=== PATIENT | male | born 1960 | race Two or more races ===

== ENCOUNTER 2021-12-13 20:15 | Inpatient (IN) | payer OTHER ==
[~2021-12-13] VITALS: Ht 185.4 cm; Wt 1179.3 kg
--- NOTE | 2021-12-13 20:59 | NUR ---
SE RECIBE PACIENTE TRAIDO POR AMBULANCIA A LA NORMA DE EMERGENCIAS, POR DIFICULTAD RESPIRATORIA, PTE ES LLEVADO AL AREA DE CRITICO Y SE UBICA EN CAMA 3, PTE PRESENTA EDEMA EN EXTREMIDADES SUPERIORES E INFERIORES. PTE SATURANDO A 88% AL MOMENTO DE RECIBIRLO. SE CONECTA PTE A CANULA NASAL A 2 LT. SE REALIZA EKG, PTE SE CONECTA A MONITOR CARDIACO Y OXIMETRIA DE PULSO. SE REALIZA VENOPUNCION EN BRAZO DERECHO CON ANGIO #18 POR RNЕлена YSJ. SE EXTRAEN MUESTRAS DE JESSICA MARCELINO ORDEN MEDICA. Y SE INSERTA TEAGUE TOMANDO MEDIDAS ASEPTICAS. SE REALIZA DXT Y LINDSAY SE ENCUENTRA EN 103MG/DL. SE LE REALIZA PLACA DE PECHO POR PERSONAL DE PLACAS Y SE REALIZAN GASES ARTERIALES POR PERSONAL DE TERAPIA RESP. AL MOMENTO PTE CON BARANDAS ELEVADAS POR SEGURIDAD, CONECTADO A MONITOR CARDIACO Y A OXIMETRIA DE PULSO PARA MAYOR VIGILANCIA DE JADE CONDICION.
[2021-12-13] MEDS ORDERED: KEPPRA750 MG PO (21:12)
[2021-12-13] MEDS ORDERED: CARVEDILOL ER40 MG PO (21:12)
[2021-12-13] MEDS ORDERED: LIPITOR40 M1 PO (21:13)
[2021-12-13] MEDS ORDERED: TEGRETOL XR400 MG PO (21:13)
[2021-12-13] MEDS ORDERED: VERELAN180 MG PO (21:13)
[2021-12-13] MEDS ORDERED: NEURONTIN300 MG PO (21:13)
[2021-12-13] MEDS ORDERED: CARVEDILOL25 MG PO (21:14)
[2021-12-13] MEDS ORDERED: SINGULAIR 10MG10 MG PO (21:15)
[2021-12-13] MEDS ORDERED: ALLERGY RELIEF10 M3 PO (21:15)
[2021-12-13] MEDS ORDERED: GLIMEPIRIDE4 MG PO (21:15)
[2021-12-13] MEDS ORDERED: ALLOPURINOL100 MG PO (21:16)
--- NOTE | 2021-12-13 23:34 | NUR ---
SE RECIBE PTE MASCULINO ALERTA Y ORIENTADO EN [place] ESFERAS DEL TURNO ANTERIOR, EN CAMA #3 DE UNIDAD DE CRITICO. PTE CONECTADO A MONITOR CARDIACO Y OXIMETRIA DE PULSO CONTINUA. ASISTIDO RESPIRATORIAMENTE CON CANULA NASAL A 2LT/MIN, PRESENTADO SATURACION DE O2 MANUAL AL 99%. VENOPUNCION EN MANO DERECHA CON ANGIO #18, PATENTE ELVIS DE EDEMA Y ERITEMA, EN SALINE LOCK. PTE CON ABDOMEN BLANDO Y DEPRESIBLE. SONDA URINARIA A GRVEDAD DRENANDO EGRESO DE ORINA COLOR AMARILLO VIOLETA CON APROXIMADAMENTE 300ML. SE CAMILA Y REPORTAN S/V. SE ORIENTA PTE SOBRE CONTINUIDAD DE TRATAMIENTO REFIERE ENTENDER. PENDIENTE CONSULTA CON MEDICINA INTERNA YA NOTIFICADA.
--- NOTE | 2021-12-13 23:52 | NUR ---
PTE PRESENTA TEMPERATURA EN 103.2 F, SE NOTIFICA A ; LINDSAY ORDENA ADMINISTRAR MEDICAMENTE TYLENOL 1,00MG PO X1. SE ADMINISTRA MEDICAMENTO, BAJO MEDIDAS ASEPTICAS Y SE COLOCA COMPRESA ARMSTRONG. SE OBSERVA POR CAMBIOS EN JADE CONDICION.
--- NOTE | 2021-12-14 01:21 | NUR ---
1255 SE RE-ESTIMA TEMPERATURA PTE PRESENTA 102.3. PTE REFIERE TOS PRODUCTIVA DESDE HACE MAS DE VIRIDIANA SEMANA. 0100 SE CONTACTA VIA TELEFONICA A , SE NOTIFICA QUEJA DE PTE Y TREMPERATURA, LINDSAY ORDENA ADMINISTRAR TYLENOL 2 TABS Q4HR PRN FOR FEVER, ZITHROMAX 500MG IV X1, ATROVENT 0.5MG IH Q4HR Y TUSSIPREX 10ML PO Q8HR; SE REALIZA READBACK X2. 0110 SE ADMINISTRAN MEDICAMENTOS, BAJO MEDIDAS ASEPTICAS. SE NOTIFICAN TERAPIAS A PERSONAL DE TERAPIA RESPIRATORIA.
--- NOTE | 2021-12-14 06:30 | NUR ---
0620 EVALUA PTE. SE REALIZA DXT Y SE CAMILA S/V. PTE NO PRESENTA FIEBRE. 0630 SE REALIZA I&O A PTE. SE OBSERVA POR CAMBIOS SIGNIFICATIVOS.
[2021-12-19] MEDS ORDERED: LEVOTHYROXINE50 MCG PO (07:13)
[2021-12-19] MEDS ORDERED: GLIMEPIRIDE4 MG PO (07:13)
[2021-12-19] MEDS ORDERED: TEGRETOL200 MG PO (07:13)
[2021-12-19] MEDS ORDERED: AMIODARONE HCL200 MG PO (07:13)
[2021-12-19] MEDS ORDERED: CEPHALEXIN500 MG PO (07:13)
[2021-12-19] MEDS ORDERED: KEPPRA500 MG PO (07:13)
[2021-12-19] MEDS ORDERED: IPRATROPIU0.2 MG/1 M IH (07:13)
[2021-12-19] MEDS ORDERED: NORVASC2.5 M1 PO (07:13)
[2021-12-19] MEDS ORDERED: CARVEDILOL25 MG PO (07:13)
[2021-12-19] MEDS ORDERED: XOPENEX0.63 MG/3 IH (07:13)
[2021-12-19] MEDS ORDERED: Lantus 1000 UNITS/10 SUBCUTANEO (07:13)
== END 2021-12-19 10:26 | disposition home or self-care (01) | DRG 291 ==
LOC: ER 20:15 → SEC-K 12-14 07:23 → MEDJ 12-15 16:06
PROVIDERS: ADMIT Internal Medicine; ATTEND Internal Medicine
PROC: 4A12X4Z Monitoring of Cardiac Electrical Activity, External Approach (ICD-10-PCS; principal; 2021-12-13)
PROC: 3E0F7SF Introduction of Other Gas into Respiratory Tract, Via Natural or Artificial Opening (ICD-10-PCS; 2021-12-13)
PROC: 3E0F7GC Introduction of Other Therapeutic Substance into Respiratory Tract, Via Natural or Artificial Opening (ICD-10-PCS; 2021-12-14)
PROC: 02HV33Z Insertion of Infusion Device into Superior Vena Cava, Percutaneous Approach (ICD-10-PCS; 2021-12-16)
PROC: 8E0ZXY6 Isolation (ICD-10-PCS; 2021-12-16)
DX: I13.0 Hypertensive heart and chronic kidney disease with heart failure and stage 1 through stage 4 chronic kidney disease, or unspecified chronic kidney disease (principal); I50.33 Acute on chronic diastolic (congestive) heart failure; J10.08 Influenza due to other identified influenza virus with other specified pneumonia; N17.8 Other acute kidney failure; Z68.42 Body mass index [BMI] 45.0-49.9, adult; I48.91 Unspecified atrial fibrillation; R09.02 Hypoxemia; E11.22 Type 2 diabetes mellitus with diabetic chronic kidney disease; N18.9 Chronic kidney disease, unspecified; G47.33 Obstructive sleep apnea (adult) (pediatric); E66.01 Morbid (severe) obesity due to excess calories; Z79.4 Long term (current) use of insulin